=== PATIENT | female | born 1965 | race Caucasian/White ===

== ENCOUNTER → 2024-01-23 12:28 | Outpatient (REF) | payer BC, SELFPAY | LOC: WDC 12:28 | PROVIDERS: ATTENDING PHYSICIAN Obstetrics & Gynecology; FAMILY PHYSICIAN Family Medicine | DX: Z12.31 Encounter for screening mammogram for malignant neoplasm of breast (principal) | CPT/HCPCS: 77063; 77067 ==

== ENCOUNTER → 2025-01-23 15:59 | Outpatient (REF) | payer BC, SELFPAY | LOC: WDC 15:59 | PROVIDERS: ATTENDING PHYSICIAN Obstetrics & Gynecology; FAMILY PHYSICIAN Physician Assistant Medical | DX: Z12.31 Encounter for screening mammogram for malignant neoplasm of breast (principal) | CPT/HCPCS: 77063; 77067 ==

== ENCOUNTER → 2025-02-04 09:35 | Outpatient (REF) | payer BC, SELFPAY | LOC: WDC 09:35 | PROVIDERS: ATTENDING PHYSICIAN Obstetrics & Gynecology; FAMILY PHYSICIAN Physician Assistant Medical | DX: R92.8 Other abnormal and inconclusive findings on diagnostic imaging of breast (principal) | CPT/HCPCS: 77065 ==

== ENCOUNTER → 2025-02-18 10:24 | Outpatient (REF) | payer BC, SELFPAY | LOC: RAD 10:24 | PROVIDERS: ATTENDING PHYSICIAN Physician Assistant Medical | DX: M85.80 Other specified disorders of bone density and structure, unspecified site (principal); R05.3 Chronic cough | CPT/HCPCS: 77080 ==

== ENCOUNTER 2025-05-01 06:15 | Day surgery (SDC) | payer BC, SELFPAY | END 2025-05-01 09:25 | disposition home or self-care (01) | LOC: GI 06:15 | PROVIDERS: ATTENDING PHYSICIAN Internal Medicine Gastroenterology | DX: Z12.11 Encounter for screening for malignant neoplasm of colon (principal); D12.2 Benign neoplasm of ascending colon; K57.30 Diverticulosis of large intestine without perforation or abscess without bleeding; K64.8 Other hemorrhoids; Z80.0 Family history of malignant neoplasm of digestive organs | CPT/HCPCS: 45385; 88305 ==